=== PATIENT | female | born 1990 | race Caucasian/White ===

== ENCOUNTER 2018-04-05 19:07 | Emergency (ER) | payer BC ==
[~2018-04-05] VITALS: Ht 160 cm; Wt 77.1 kg
[2018-04-05 20:38] LABS: BASOPHILS % (AUTO) 0.3 % (0.0-2.0); EOSINOPHILS # (AUTO) 0.1 K/uL (0.0-0.7); EOSINOPHILS % (AUTO) 1.5 % (0.0-7.0); HEMATOCRIT 40.9 % (31.2-41.9); HEMOGLOBIN 14.1 g/dL (10.9-14.3); LYMPHOCYTES # (AUTO) 1.8 K/uL (20.0-40.0); LYMPHOCYTES % (AUTO) 23.3 % (20.5-51.5); MEAN CORPUSCULAR HEMOGLOBIN 34.3 uug (24.7-32.8); MEAN CORPUSCULAR HGB CONC 35 g/dL (32.3-35.6); MEAN CORPUSCULAR VOLUME 99.4 fL (75.5-95.3); MONOCYTES # (AUTO) 0.5 K/uL (2.0-10.0); NEUTROPHILS # (AUTO) 5.2 K/uL (1.8-8.9); NEUTROPHILS % (AUTO) 67.9 % (38.5-71.5); PLATELET COUNT (AUTO) 209 K/uL (179-408); RED BLOOD CELL COUNT(AUTO) 4.12 MIL/uL (3.63-4.92); WHITE BLOOD COUNT (AUTO) 7.6 K/uL (3.8-11.8)
[2018-04-05 20:46] LABS: CARBON DIOXIDE 28 mmol/L (21-32); CHLORIDE 96 mmol/L (98-107); CREATININE 0.7 mg/dL (0.6-1.3); GLUCOSE 101 mg/dL (74-106); POTASSIUM 3.5 mmol/L (3.5-5.1); UREA NITROGEN, BLOOD 11 mg/dL (7-18)
[2018-04-05 20:51] LABS: ALANINE AMINOTRANSFERASE 26 U/L (14-59); ALKALINE PHOSPHATASE 90 U/L (50-136); ASPARTATE AMINOTRANSFERASE 20 U/L (15-37); BILIRUBIN,DIRECT 0.2 mg/dL (0.0-0.2); BILIRUBIN,TOTAL 0.6 mg/dL (0.2-1.0); LIPASE 100 U/L (73-393); TOTAL PROTEIN, SERUM 8.4 g/dL (6.4-8.2)
--- NOTE | 2018-04-05 21:24 | NUR ---
dcd instructions given to pt. who verbalized understaning. pt. left room ambulatory no c/of pain at this time. unit's phone number provided as indicated by .
== END 2018-04-05 21:26 | disposition home or self-care (01) ==
LOC: ER 19:08
DX: R10.12 Left upper quadrant pain (principal); F12.10 Cannabis abuse, uncomplicated
CPT/HCPCS: 36415; 83690; 85025; A4663